=== PATIENT | female | born 1990 | race Caucasian/White ===

== ENCOUNTER 2016-11-15 19:05 | Inpatient (IN) | payer OTHER ==
[~2016-11-15] VITALS: Ht 162.6 cm; Wt 65.6 kg
[~2016-11-15 19:05] MED LIST: DIL2 PO; ETHI1TAB5 PO; INSU100C2 SQ; INSU100C8 SQ
[2016-11-15 19:34] VITALS: BP 132/85; PULSE 125; RESP 18; O2SAT 98
[2016-11-15] MEDS ORDERED: 0.9% Sodium Chloride 1,000 ML IV ONE ×2 (20:55→21:30)
--- NOTE | 2016-11-15 21:01 | ED.REPORT ---
HPI-Chest Pain Under 40 Date of Service Nov 15, 2016 ED Provider: Chalino Marshall MD Pt is a 25 y.o. female with a hx of DM I who presents to the ED c/o pleuritic chest pain onset yesterday. Pt reports associated sore throat, cough, fever ( subjective), nausea, vomiting, and constipation. She denies dysuria and productive cough. Pt had been driving from [place] to [place] yesterday when she noticed her sx. Upon arrival to the ED her BS was 350. She denies a hx of DVT and DKA. Nursing Notes Stated Complaint: PAINFUL BREATHING, FEVER, CAN'T TAKE DEEP BREATHS Chief Complaint: FLU/Cold Symptoms Nursing Notes Reviewed: Yes Allergies: Coded Allergies: Mosquito (Verified Allergy, Mild, Hives, 02/10/07) Scheduled Insulin Glargine (Lantus U100 Insulin Vial) 100 Unit/Ml Vial 12 UNIT SUBQ HS Insulin Human Lispro (HumaLOG U100 Insulin Vial) 100 Unit/Ml Unit 5-12 UNIT SUBQ TIDWM PER SLIDING SCALE AND CARB COUNTING Scheduled PRN Ibuprofen (Ibuprofen) 200 Mg Capsule 200-400 MG PO Q8H PRN PRN For Headache General Time Seen by MD: 20:58 Chief Complaint Chest pain Hx Obtained From: Patient Arrived By: Walk-in Sudden in Onset?: Yes Onset Occurred: Yesterday Symptom Duration: Since onset Quality: Painful, Pleuritic Past Medical History Past Medical History Reports: Diabetes mellitus Past Surgical History Reports: Smoking History Never Smoker Social History Alcohol Use: Denies alcohol use Drug Use: Denies drug use Occupation Works at [employer] Status Independent Review of Systems Constitutional: Reports: Fever Respiratory: Reports: Non-productive cough, Pleuritic pain, Denies: Prod cough, bloody, Prod cough, brown, Prod cough, clear, Prod cough , green, Prod cough, white, Prod cough, yellow Cardiovascular: Reports: Chest pain GI: Reports: Constipation, Nausea, Vomiting Complete sys rev & neg: except as marked. Ears / Nose / Throat: Reports: Sore throat Female: Denies: Dysuria Physical Exam Initial Vital Signs Vital Signs (First) Date Time Temp Pulse Resp B/P Pulse Ox O2 Delivery O2 Flow Rate FiO2 11/15/16 19:34 39.0 125 18 132/85 98 Room Air Initial VS: Reviewed Head / Eyes: Atraumatic, Normocephalic, PERRL Abdomen / GI: Soft, Non-tender, No guarding, No rebound, No distention Extremities: Vascular intact, Neuro intact Skin: Warm, Dry, No cyanosis Neurologic: Alert, Oriented, Nonfocal Psychiatric: Mood/affect normal, Behavior normal, Normal thought content Respiratory / Chest: Breath sounds NL, No wheezing, No chest tenderness Splinting with deep breathing Hyperventilating Cardiovascular: Heart sounds NL, Cap refill not delayed, Peripheral circulation NL Heart Rate / Rhythm: Positive: Tachycardia No lower extremity edema or chords ENT: Airway patent, Pharynx NL Mouth: Positive: Mucous membranes dry Lips cracked and dry Interpretation & Diagnostics Lab Results Interpretation Result Diagram: 11/15/16 2105 11/16/16 0430 Test 11/15/16 21:05 11/15/16 22:00 White Blood Count 8.2th/mm3 (3.8-10.1) Red Blood Count 4.95mil/mm3 (3.90-5.20) Hemoglobin 14.8g/dL (12.0-15.6) Hematocrit 43.3% (35.0-46.0) Mean Corpuscular Volume 87.5fL (81-100) Mean Corpuscular Hemoglobin 29.9pg (27.0-35.0) Mean Corpuscular Hemoglobin Concent 34.2% (32.0-37.0) Red Cell Distribution Width 12.6% (12.3-15.4) Platelet Count 274bil/L (150-400) Neutrophils (%) (Auto) 76.4% (40-74) Lymphocytes (%) (Auto) 18.2% (14-46) Monocytes (%) (Auto) 5.1% (4-12) Eosinophils (%) (Auto) 0% (0-5) Basophils (%) (Auto) 0.1% (0-3) D-Dimer < 0.50mg/L FEU (<0.50) Lactic Acid Level 1.1mmol/L (0.4-2.0) Total Bilirubin 0.5mg/dL (0.0-1.2) Aspartate Amino Transf (AST/SGOT) 15U/L (0-50) Alanine Aminotransferase (ALT/SGPT) 18U/L (0-32) Alkaline Phosphatase 81U/L (25-150) Troponin T 0.010ug/L (0.0-0.011) Pro-B-Type Natriuretic Peptide 6.25pg/mL (0-130) Total Protein 8.1g/dL (6.4-8.4) Albumin 4.1g/dL (3.4-5.0) Procalcitonin 0.11ng/mL (0.00-0.08) Ketones Positive (Negative) Urine Color Yellow (YELLOW) Urine Appearance Clear (CLEAR,HAZY) Urine pH 6.0 (5.0-8.0) Urine Specific [place] 1.043 (1.003-1.035) Urine Protein 30mg/dL (NEG,TRACE) Urine Glucose (UA) 500mg/dL (NEGATIVE) Urine Ketones >80mg/dL (NEGATIVE) Urine Occult Blood Small (NEGATIVE) Urine Nitrite Negative (NEGATIVE) Urine Bilirubin Negative (NEGATIVE) Urine Urobilinogen Normalmg/dL (NORMAL) Urine Leukocyte Esterase Negative (NEGATIVE) Urine RBC 0-2/hpf (0-2) Urine WBC 0-5/hpf (0-5) Urine Epithelial Cells Occasional/hpf (NONE-MOD) Urine Crystals None seen (NONE SEEN) Urine Bacteria None/hpf (NONE-FEW) Urine Hyaline Casts None/lpf (NONE) Urine Granular Casts None seen (NONE SEEN) Urine Waxy Casts None seen (NONE SEEN) Urine Red Blood Cell Casts None seen (NONE SEEN) Urine White Blood Cell Casts None seen (NONE SEEN) Urine Mucus None seen (None Seen) Urine Trichomonas None seen (NONE SEEN) Urine Yeast None (NONE SEEN) Urine Culture Reflexed Not indicated ECG Interpretation Time: 20:55 Interpreted by: ED physician Normal ECG Interpretation: Normal sinus rhythm, No acute ischemic changes Rhythm / Conduction: Tachycardia (119) X-Ray Chest Interpretation Chest Xray Interpretation: IMPRESSION: No acute cardiopulmonary findings. Dictated by: Yana Nye M.D. on 11/15/2016 at 21:28 Approved by: Yana Nye M.D. on 11/15/2016 at 21:28 Re-Eval/Medical Decision Med Decision/Clinical Course 25-year-old presents ostensibly with pleuritic chest pain, but it is tachycardic, dry, and routine labs reveal acidosis and diabetic ketoacidosis. Her pleuritic pain appears to be a simple viral pleuritis, with a negative chest x-ray. Her d-dimer is negative. EKG is normal. She is tachycardic but otherwise unremarkable. She is admitted now for IV fluids and insulin therapy for her DKA. She is febrile and flushed but no obvious source of infection found. Likely this is viral. Clean chest, clean urine, and no other focal source found. Transported in stable condition, improved after fluids and initiation of insulin therapy. Source of Hx: Old records Re-Evaluation/Progress : Time of Eval: 22:23 Re-Evaluation/Progress Note: Discussed lab results and plan for admit, pt understands and agrees with plan. Consultation : Referral / Consult Name: Fernando Dallas MD Consulted With: Hospitalist Call Returned at: 22:46 Trim Setter Helper: Agrees with eval, Agrees with plan, Accepts admit Note: Discussed pt condition. Accepts admit. Counseled Regarding: Diagnosis, Lab results, Need for admission Discharge & Departure Primary Impression: DKA, type 1 Diabetes mellitus complication detail: without coma Qualified Code: E10.10 - Type 1 diabetes mellitus with ketoacidosis without coma Disposition: ADMITTED TO HOSPITAL Discharge Condition All VS Reviewed: Yes Condition: Improved Referrals: Diamante Joens MD (PCP) Crit Care Except Billable Proc Time Spent: 30-74 minutes (thirty minutes) Scribe Attestation Portions of this note were transcribed by Ari Pina. Dr. Rolando Hollingsworth personally performed the history, physical exam and medical decision-making; I reviewed and confirmed the accuracy of the information in the transcribed note. Signed by: Enrique Sorenson, 11/15/16 and 1613 copies to: Diamante Jones MD, Christopher W MD Nov 15, 2016 21:01 ARI PINA Nov 15, 2016 21:04 Discharge & Departure Primary Impression: DKA, type 1 Diabetes mellitus complication detail: without coma Qualified Code: E10.10 - Type 1 diabetes mellitus with ketoacidosis without coma Disposition: ADMITTED TO HOSPITAL Discharge Condition All VS Reviewed: Yes Condition: Improved Referrals: Diamante Jones MD (PCP) Scribe Attestation Portions of this note were transcribed by Ari Pina. Dr. Rolando Hollingsworth personally performed the history, physical exam and medical decision-making; I reviewed and confirmed the accuracy of the information in the transcribed note. Signed by: Enrique Sorenson, 11/15/16 and 1080 copies to: Diamante Jones MD, Christopher W MD Nov 15, 2016 21:01 ARI PINA Nov 15, 2016 21:04
[2016-11-15 21:14] VITALS: BP 125/72; PULSE 123; RESP 22; O2SAT 99
[2016-11-15 21:14] LABS: BASOPHILS % (AUTO) 0.1 % (0-3); EOSINOPHILS % (AUTO) 0 % (0-5); MONOCYTES % (AUTO) 5.1 % (4-12); Mean Corpuscular Hemoglobin 29.9 pg (27.0-35.0); Mean Corpuscular Volume 87.5 fL (81-100); NEUTROPHILS % (AUTO) 76.4 % (40-74); Platelet Count 274 bil/L (150-400)
--- NOTE | 2016-11-15 21:30 | DRSVH ---
PROCEDURE: X-RAY CHEST ONE VIEW, PORTABLE ([id number]) INDICATIONS: SOB TECHNIQUE: One view of the chest was acquired. COMPARISON: None. FINDINGS: Surgical changes and devices: None. Lungs and pleura: No pleural effusions or pneumothorax. Lungs are clear. Mediastinum: Mediastinal contours appear normal. Heart size is normal. Bones and chest wall: No suspicious bony lesions. Overlying soft tissues appear unremarkable. IMPRESSION: No acute cardiopulmonary findings. Dictated by: Yana Nye M.D. on 11/15/2016 at 21:28 Approved by: Yana Nye M.D. on 11/15/2016 at 21:28
[2016-11-15 21:37] LABS: TROPONIN T 0.01 ug/L (0.0-0.011)
[2016-11-15] MEDS ORDERED: Insulin Human REGular 100 Units/100 mL NS IV SCH ×2 (22:05)
[2016-11-15] MEDS ORDERED: Insulin Human REGular 300 Unit/3 mL Inj IV SCH (22:05)
[2016-11-15] MEDS ORDERED: Insulin Human REGular Inj 100 UNIT in 0.9% Sodium Chloride 100 ML IV SCH (22:05)
[2016-11-15] MEDS ORDERED: Dextrose 10% 250 ML IV PRN (22:05)
[2016-11-15] MEDS ORDERED: D5W1/2NS 1,000 mL IV PRN (22:05)
[2016-11-15] MEDS ORDERED: Insulin Human REGular 300 Unit/3 mL Inj IV ONE (22:06)
[2016-11-15 22:20] VITALS: O2SAT 100
--- NOTE | 2016-11-15 22:32 | ABG ---
DateTimeAnalyzed 22:25:40 -_ pH ____7.261 - 7.350 7.450 pCO2 ___21.5__ -mmHg 35.0 45.0 pO2 116 -mmHg 70.0 100 HCO3- ____9.7__ -mmol/L 22.0 26.0 ABE __-15.8__ -mmol/L -2.0 2.0 tHb ___12.3__ -g/dL 12.0 18.0 O2Hb ___97.2__ -% 95.0 COHb ____1.0__ -% 1.5 MetHb ____0.6__ -% 0.4 1.5 sO2 ___98.8__ -% FIO2 ___21.0__ -% Drawn By MD - Date/Time Notified____ 22:31:00 -_ Notified By MD - Notified Whom DR ACEVEDO - K+ ____2.8__ -mmol/L tO2 ___17.0__ -Vol% OrderingPhysicianInitials CR - Carlos Manuel test _Positive -
[2016-11-15 22:33] LABS: APPEARANCE,URINE CLEAR (CLEAR,HAZY); COLOR,URINE YELLOW (YELLOW); OCCULT BLOOD,URINE SMALL (NEGATIVE); UROBILINOGEN,URINE NORMAL (NORMAL)
[2016-11-15] MEDS: 0.9% Sodium Chloride 1,000 ML IV SCH (22:49)
[2016-11-15] MEDS ORDERED: Alum-Mag Hydrox-Simeth 30 mL Suspension PO PRN (22:50)
[2016-11-15] MEDS ORDERED: Ondansetron 2 mg/mL 2 mL Inj IVPUSH PRN (22:50)
[2016-11-15] MEDS ORDERED: Polyethylene Glycol (PEG) 17 Gm Powder PO PRN (22:50)
[2016-11-15] MEDS ORDERED: Senna-Docusate 8.6-50 mg Tablet PO PRN (22:50)
--- NOTE | 2016-11-15 23:21 | PCM.HPMED ---
Subjective Date of Service Nov 15, 2016 Primary Provider: Admitting Physician: Primary Care Physician: Diamante Jones MD Attending Physician: Admit Status: From the Emergency Department, Full Admit, Critical Care Chief Complaint: Chest pain History of Present Illness: Alcira Solano is a 25 y.o. female with Type 1 Diabetes who presents to [facility] emergency department c/o pleuritic chest pain onset yesterday. Pt reports associated sore throat that started yesterday. Associated with dry cough, fever (subjective), nausea, vomiting, and constipation. She denies dysuria and productive cough or diarrhea. Patient denies any leg pain and no prior DVT before. She does not take any contraceptive pills. Denies any hemoptysis. Pt had been driving from [place] to [place]. They started driving since Tuesday but denies any sick contacts. She has type 1 diabetes but never had an episode of DKA before. She reports not missing any of her insulin dose Upon arrival to the ED her BS was 350. Case discussed with Dr Marshall, workup consistent with DKA with positive ketones. D dimer negative. Plan to admit for Insulin drip with DKA protocol Review of Systems: Pertinent positives as noted in HPI. All other systems were reviewed and are negative Allergies Coded Allergies: Mosquito (Verified Allergy, Mild, Hives, 02/10/07) Home Medications From [facility], not yet confirmed Alcira Bach [id number] 1990 09/22/2016 02:00 PM Page: 06/08 Delyla (28) 0.1 mg-20 mcg tablet take 1 tablet by oral route every day Humalog 100 unit/mL subcutaneous solution inject by subcutaneous route 5 to 15 units per sliding scale with each meal for diabetes. Lantus Solostar 100 unit/mL (3 mL) subcutaneous insulin pen inject 12 units by Subcutaneous route per insulin protocol Vitamin tablet take 1 tablet by oral route every day x 30 days. Stop Pyridium 200 mg tablet take 1 tablet by oral route 3 times every day after meals PMH Type 1 Diabetes Low back strain Right wrist tendonitis . Surgical History C section Pancreatic surgery when she was 8 Family History Patient adopted Social History Hx Alcohol Use: Yes (Occasional, social drinker) Hx Substance Use: No Hx Tobacco Use: No Smoking Status: Never Smoker Living Arrangement: with Family Exam Vital Signs Vital Sign - Last Date Time Temp Pulse Resp B/P Pulse Ox O2 Delivery O2 Flow Rate FiO2 11/15/16 22:20 37.0 100 Room Air 11/15/16 21:14 123 22 125/72 Exam General: Alert, Oriented X3, Cooperative, No acute Distress Eyes: PERRLA, Scleral Anicteric Mouth: Mouth Normal, Mucous Membranes dry Neck: Supple, no Thyromegaly, trachea central. Chest & Lungs: Clear to auscultation & percussion, No adventitious breath sounds, no crackles, no wheeze Cardiovascular: Normal S1, Normal S2, No Murmurs/Rubs/Gallops, Regular Rate/ Rhythm,(No JVD, no peripheral edema) Pulses: Radial (present and equal), Dorsalis Pedi (present and equal) Abdomen: Soft, Non-tender, Non-distended, Normoactive bowel tones. Musculoskeletal: Unremarkable. Normal range of motion, no swollen or erythematous joints Extremities: No edema, no cyanosis, no clubbing. Skin: No rashes. Warm and dry, no erythematous areas Neurological: Grossly neurologically intact, Normal Speech, Sensation Intact Lymphatic: Lymph nodes Cervical and Axillary not palpable. Lab and Diagnostics Labs Laboratory Tests Test 11/15/16 21:05 11/15/16 22:00 White Blood Count 8.2th/mm3 (3.8-10.1) Red Blood Count 4.95mil/mm3 (3.90-5.20) Hemoglobin 14.8g/dL (12.0-15.6) Hematocrit 43.3% (35.0-46.0) Mean Corpuscular Volume 87.5fL (81-100) Mean Corpuscular Hemoglobin 29.9pg (27.0-35.0) Mean Corpuscular Hemoglobin Concent 34.2% (32.0-37.0) Red Cell Distribution Width 12.6% (12.3-15.4) Platelet Count 274bil/L (150-400) Neutrophils (%) (Auto) 76.4% (40-74) Lymphocytes (%) (Auto) 18.2% (14-46) Monocytes (%) (Auto) 5.1% (4-12) Eosinophils (%) (Auto) 0% (0-5) Basophils (%) (Auto) 0.1% (0-3) D-Dimer < 0.50mg/L FEU (<0.50) Sodium Level 129mEq/L (134-144) Potassium Level 3.7mEq/L (3.5-5.2) Chloride Level 94mEq/L (97-108) Carbon Dioxide Level 11mmol/L (18-29) Blood Urea Nitrogen 11mg/dL (6-20) Creatinine 0.46mg/dL (0.57-1.00) Estimat Glomerular Filtration Rate 237mL/min (>59) Glucose Level 335mg/dL (60-99) Calcium Level 8.6mg/dL (8.5-10.1) Total Bilirubin 0.5mg/dL (0.0-1.2) Aspartate Amino Transf (AST/SGOT) 15U/L (0-50) Alanine Aminotransferase (ALT/SGPT) 18U/L (0-32) Alkaline Phosphatase 81U/L (25-150) Troponin T 0.010ug/L (0.0-0.011) Pro-B-Type Natriuretic Peptide 6.25pg/mL (0-130) Total Protein 8.1g/dL (6.4-8.4) Albumin 4.1g/dL (3.4-5.0) Hold Cline Top Tube Received (Received) Ketones Positive (Negative) Urine Color Yellow (YELLOW) Urine Appearance Clear (CLEAR,HAZY) Urine pH 6.0 (5.0-8.0) Urine Specific [place] 1.043 (1.003-1.035) Urine Protein 30mg/dL (NEG,TRACE) Urine Glucose (UA) 500mg/dL (NEGATIVE) Urine Ketones >80mg/dL (NEGATIVE) Urine Occult Blood Small (NEGATIVE) Urine Nitrite Negative (NEGATIVE) Urine Bilirubin Negative (NEGATIVE) Urine Urobilinogen Normalmg/dL (NORMAL) Urine Leukocyte Esterase Negative (NEGATIVE) Urine RBC 0-2/hpf (0-2) Urine WBC 0-5/hpf (0-5) Urine Epithelial Cells Occasional/hpf (NONE-MOD) Urine Crystals None seen (NONE SEEN) Urine Bacteria None/hpf (NONE-FEW) Urine Hyaline Casts None/lpf (NONE) Urine Granular Casts None seen (NONE SEEN) Urine Waxy Casts None seen (NONE SEEN) Urine Red Blood Cell Casts None seen (NONE SEEN) Urine White Blood Cell Casts None seen (NONE SEEN) Urine Mucus None seen (None Seen) Urine Trichomonas None seen (NONE SEEN) Urine Yeast None (NONE SEEN) Urine Culture Reflexed Not indicated Result Diagram: 11/15/16210411/15/162104 X-Rays, CTs and MRIs X-RAY CHEST ONE VIEW, PORTABLE 11/15 IMPRESSION: No acute cardiopulmonary findings. Dictated by: Yana Nye M.D. on 11/15/2016 at 21:28 Approved by: Yana Nye M.D. on 11/15/2016 at 21:28 Assessment & Plan Alcira Solano is a 25 y.o. female with Type 1 Diabetes who presents to [facility] emergency department c/o pleuritic chest pain but was found to be in DKA 1. Diabetic Ketoacidosis. Present on admission Likely triggered by a viral infection. - DKA insulin protocol, will stop when Anion gap is closed < 12 - Lantus prior to stopping insulin drip then start Lispro correction algorithm - nothing by mouth till off insulin drip - BMP q 4 hours to calculate anion gap - IV fluids resuscitations: NS @ 200 cc/hr, will switch to D51/2 NS when Blood glucose < 250 to avoid hypoglycemia - Inpatient Diabetes education 2. Acute Fever. Present on admission Suspect an infectious process likely a respiratory viral infection - procalcitonin check, initiate antibiotics if elevated - Thrombotic disease can also cause fever but d dimer is negative 3. Hyponatremia due to pseudohyponatremia due to hyperglycemia. Present on admission - should correct when treating hyperglycemia - Acetaminophen as needed for mild pain/fever/headache - Bowel regimen as needed -Antiemetic as needed Patient admitted under inpatient status with expected length of stay > 2 midnights for severity of present symptoms, complexities of treatment plan and risk for adverse event . Resuscitation Status: CPR: Attempt Resuscitation Fernando Dallas MD Nov 15, 2016 22:59
[2016-11-16] MEDS ORDERED: INSU100V7 SUBQ (00:08)
[2016-11-16] MEDS ORDERED: INSLIS SUBQ (00:09)
[2016-11-16] MEDS ORDERED: IBUP200C PO (00:10)
[2016-11-16 00:30] VITALS: BP 103/69; PULSE 98; RESP 18; O2SAT 99
[2016-11-16] MEDS ORDERED: Insulin Human REGular 300 Unit/3 mL Inj IV PRN (00:50)
[2016-11-16] MEDS ORDERED: Insulin Human REGular 100 Units/100 mL NS IV SCH ×2 (00:50)
[2016-11-16] MEDS ORDERED: 0.9% Sodium Chloride 1,000 ML IV SCH (00:55)
[2016-11-16] MEDS ORDERED: D5W1/2NS 1,000 mL IV PRN (00:55)
[2016-11-16] MEDS ORDERED: Calcium GLUCO 10% (Gm) Inj 2 GM in 0.9% Sodium Chloride 100 ML IV ONE (01:00)
[2016-11-16] MEDS: Heparin 5,000 Unit/mL Inj SUBQ SCH ×4 (01:13→23:37)
[2016-11-16] MEDS ORDERED: DEXTROSE IV ONE (03:00)
[2016-11-16] MEDS ORDERED: POTASSIUM CHLORIDE IV ONE (03:00)
[2016-11-16] MEDS ORDERED: levoFLOXacin Inj 750 MG in IV Premix 1 EACH IV SCH (04:15)
[2016-11-16 05:00] VITALS: BP 103/75; PULSE 92; RESP 19; O2SAT 100
[2016-11-16] MEDS: 0.9% Sodium Chloride 1,000 ML IV SCH (06:49)
[2016-11-16 07:36] VITALS: BP 106/69; PULSE 104; RESP 25; O2SAT 100
[2016-11-16] MEDS ORDERED: Glucose 40% Oral Gel 15 Gm Tube PO PRN (08:00)
[2016-11-16] MEDS ORDERED: Insulin Human NPH 100 Unit/mL 3 mL Inj SUBQ SCH (08:00)
[2016-11-16] MEDS: Insulin LISPRO 300 Unit/3 mL Inj SUBQ SCH ×5 (09:26→21:06)
[2016-11-16 12:00] VITALS: PULSE 104; RESP 20
[2016-11-16] MEDS ORDERED: Potassium Chloride 20 mEq SR Tablet PO ONE (13:05)
--- NOTE | 2016-11-16 14:52 | PCM.PNMED ---
Subjective Date of Service Nov 16, 2016 Subjective 25-year-old woman with type I diabetes presents in DKA with pleuritic respiratory infection, developing after cross, no automobile trip Reports feeling much better today. Appetite is present. No more nausea vomiting. Continues to have central upper sternal chest discomfort with deep breathing. No productive cough. Exam Vital Signs Vital Sign - Last Date Time Temp Pulse Resp B/P Pulse Ox O2 Delivery O2 Flow Rate FiO2 11/16/16 12:00 38.9 104 20 Room Air 11/16/16 07:36 106/69 100 Intake and Output 11/15/16 11/15/16 11/16/16 Cumulative From/Thru 15:00 23:00 07:00 11/15/16 19:34 - 11/16/16 06:07 Intake Total 1934 ml 1934 ml Output Total 1400 ml 1400 ml Balance 534 ml 534 ml Intake Oral 360 ml 360 ml IV Total 1574 ml 1574 ml Output Urine Total 1400 ml 1400 ml Exam General: Healthy-appearing, no acute distress HEENT: sclerae anicteric, oral mucosa moist Neck: no JVD Chest: clear to auscultation Cardiac: S1S2, no murmur Abdomen: BS normal, non-tender Extremities: No edema Neuro: A&O, cranial nerves symmetric, motor strength 5/5, coordination normal IVs and Medications Medications Reviewed: Medications were reviewed in detail Lab and Diagnostics Result Diagram: 11/15/16 2105 11/16/16 1230 X-Rays, CTs and MRIs X-RAY CHEST ONE VIEW, PORTABLE 11/15 IMPRESSION: No acute cardiopulmonary findings. Dictated by: Yana Nye M.D. on 11/15/2016 at 21:28 Approved by: Yana Nye M.D. on 11/15/2016 at 21:28 . Assessment & Plan Alcira Solano is a 25 y.o. female with Type 1 Diabetes who presents to [facility] emergency department c/o pleuritic chest pain but was found to be in DKA #. Diabetic Ketoacidosis. Present on admission. Likely triggered by a viral infection. Admitting pH 7.26. Serum bicarbonate 11. Anion gap 24. Gap closed within 24 hours of IV insulin. - Diabetic diet - Restart her home Lantus at bedtime, with NPH bridged today - Humalog 6 units nutritional plus medium correctional scale - Discontinue BMP q 4 hours; repeat BMP in a.m. - Discontinue IV fluids resuscitations: Encourage by mouth hydration- Inpatient Diabetes education #. SIRS, Acute Fever 39.3, heart rate 109, respiratory rate 20. Present on admission. White blood count is normal. Suspect a bronchiolar pulmonary infectious process likely a respiratory viral infection. No infiltrate. - Levaquin was started empirically - Check respiratory PCR panel - Change Levaquin to azithromycin, plan to complete five-day course. #. Pseudohyponatremia due to hyperglycemia. Present on admission - Resolved - Acetaminophen as needed for mild pain/fever/headache - Bowel regimen as needed -Antiemetic as needed Patient admitted under inpatient status with expected length of stay > 2 midnights for severity of present symptoms, complexities of treatment plan and risk for adverse event. Expect one more day with stable blood sugar and anion gap on subcutaneous insulin. . VTE Prophylaxis: Sub-Q Heparin (Unfractionated) Resuscitation Status: CPR: Attempt Resuscitation Time spent 40 minutes Tashi Feliz MD Nov 16, 2016 14:52
[2016-11-16 20:03] VITALS: BP 107/71; PULSE 99; RESP 20; O2SAT 100
[2016-11-16] MEDS ORDERED: Insulin GLARgine 100 Unit/mL Syringe SUBQ SCH ×2 (21:00)
[2016-11-16 23:34] VITALS: BP 127/83; PULSE 108; RESP 20; O2SAT 100
[2016-11-17 02:37] LABS: BASOPHILS % (AUTO) 0.1 % (0-3); EOSINOPHILS % (AUTO) 0.7 % (0-5); MONOCYTES % (AUTO) 9.6 % (4-12); Mean Corpuscular Hemoglobin 29.9 pg (27.0-35.0); Mean Corpuscular Volume 87.8 fL (81-100); Platelet Count 210 bil/L (150-400)
[2016-11-17 02:59] LABS: ERYTHROCYTE SEDIMENTATION RATE 34 mm/hr (0-32)
[2016-11-17 03:57] VITALS: BP 104/68; PULSE 94; RESP 20; O2SAT 98
[2016-11-17] MEDS ORDERED: Potassium Chloride Oral 20 mEq SR Tab(K 3 - 3.7 & Creat < 2) PO ONE (06:30)
[2016-11-17] MEDS ORDERED: Insulin Human NPH 100 Unit/mL 3 mL Inj SUBQ ONE (07:20)
[2016-11-17 07:25] VITALS: BP 109/75; PULSE 101; RESP 16; O2SAT 97
[2016-11-17] MEDS ORDERED: Potassium Chloride 20 mEq SR Tablet PO SCH ×2 (08:00→12:00)
[2016-11-17] MEDS: Heparin 5,000 Unit/mL Inj SUBQ SCH ×2 (08:30→16:30)
[2016-11-17] MEDS: Insulin LISPRO 300 Unit/3 mL Inj SUBQ SCH ×4 (08:36→20:51)
--- NOTE | 2016-11-17 10:20 | DRSVH ---
PROCEDURE: CT CHEST WITHOUT CONTRAST ([id number]) INDICATIONS: r/o effusion, pleural disease TECHNIQUE: Noncontrast 5 mm thick sections acquired from the pulmonary apices to the posterior costophrenic angl es. 7 mm thick coronal and sagittal MIP reformats were then acquired. For radiation dose reduction, the following was used: automated exposure control, adjustment of mA and/or kV according to patient size. COMPARISON: [facility], CR, XR CHEST 1VW (PORTABLE), 11/15/2016, 20:41. FINDINGS: Image quality: Excellent. Lungs and pleura: No acute air space opacities. No pleural effusions or pneumothorax. Central and peripheral airways are patent and normal in caliber. Mediastinum: Heart size is normal. No pericardial effusion. No mediastinal adenopathy by size crit eria. Thoracic aorta and central pulmonary arteries are normal in size. Esophagus is normal in jany lam. No hiatal hernia. Bones and chest wall: No suspicious bony lesions. No vertebral body compression fractures. No axil amanda or supraclavicular adenopathy by size criteria. Thyroid gland is within normal limits. Abdomen: Visualized upper abdominal solid organs and bowel loops appear normal in the absence of con trast. IMPRESSION: 1. No acute disease process. 2. No pleural effusion. 4. No acute lung opacities. Dictated by: Cely Dillard MD, PhD on 11/17/2016 at 9:50 Approved by: Cely Dillard MD, PhD on 11/17/2016 at 10:18
[2016-11-17 12:21] VITALS: BP 105/69; PULSE 88; RESP 17; O2SAT 98
[2016-11-17 13:21] VITALS: PULSE 95
--- NOTE | 2016-11-17 15:12 | PCM.PNMED ---
Subjective Date of Service Nov 17, 2016 Subjective 25-year-old woman with type I diabetes presents in [facility] with pleuritic respiratory infection, developing after [place] country automobile trip Feels similar to yesterday. Less symptomatic from fevers with scheduled Tylenol. Appetite is present. No nausea vomiting. Continues to have central upper sternal chest discomfort with deep breathing. No productive cough. Exam Vital Signs Vital Sign - Last Date Time Temp Pulse Resp B/P Pulse Ox O2 Delivery O2 Flow Rate FiO2 11/17/16 13:21 95 11/17/16 12:21 36.9 17 105/69 98 Room Air Intake and Output 11/16/16 11/16/16 11/17/16 Cumulative From/Thru 15:00 23:00 07:00 11/15/16 19:34 - 11/17/16 06:17 Intake Total 2407 ml 800 ml 5141 ml Output Total 750 ml 2150 ml Balance 1657 ml 800 ml 2991 ml Intake Oral 1800 ml 800 ml 2960 ml IV Total 607 ml 0 ml 2181 ml Output Urine Total 750 ml 2150 ml # Voids 1 3 4 Exam General: Healthy-appearing, no acute distress HEENT: sclerae anicteric, oral mucosa moist Neck: no JVD Chest: clear to auscultation, no Cardiac: S1S2, no murmur Abdomen: BS normal, non-tender Extremities: No edema Neuro: A&O, cranial nerves symmetric, motor strength 5/5, coordination normal IVs and Medications Medications Reviewed: Medications were reviewed in detail Lab and Diagnostics Result Diagram: 11/17/1622411/17/16 022 X-Rays, CTs and MRIs X-RAY CHEST ONE VIEW, PORTABLE 11/15 IMPRESSION: No acute cardiopulmonary findings. Dictated by: Yana Nye M.D. on 11/15/2016 at 21:28 Approved by: Yana Nye M.D. on 11/15/2016 at 21:28 PROCEDURE: CT CHEST WITHOUT CONTRAST ([id number]) IMPRESSION: 1. No acute disease process. 2. No pleural effusion. 4. No acute lung opacities. Dictated by: Cely Dillard MD, PhD on 11/17/2016 at 9:50 . Assessment & Plan Alcira Solano is a 25 y.o. female with Type 1 Diabetes who presents to [facility] emergency department c/o pleuritic chest pain but was found to be in DKA #. Diabetic Ketoacidosis. Present on admission. Likely triggered by a viral infection. Admitting pH 7.26. Serum bicarbonate 11. Anion gap 24. Gap closed within 24 hours of IV insulin. Persistent hyperglycemia and increased insulin requirement. - Diabetic diet - Increase Lantus at bedtime to 30 units (ambulatory doses 10 units), with NPH bridged today - Increase Humalog 6 units nutritional plus medium correctional scale - Discontinue BMP q 4 hours; repeat BMP in a.m. - Encourage by mouth hydration - Inpatient Diabetes education #. Pleuritic chest pain, acute, present on admission. D-dimer has been negative 2. Chest CT unremarkable. - Echocardiogram to rule out pericarditis - YOMI - IV ketorolac; if ineffective will continue with by mouth NSAID - Prefer not opioid analgesic #. Hypokalemia, acute. - Supplement by mouth #. SIRS, Acute Fever 39.3, heart rate 109, respiratory rate 20. Present on admission. White blood count is normal. Suspect a bronchiolar pulmonary infectious process likely a respiratory viral infection. No infiltrate. Levaquin was started empirically. Respiratory PCR panel negative. - Change Levaquin to azithromycin, plan to complete five-day course. Antibiotics day 1 was 11/16/16. #. Pseudohyponatremia due to hyperglycemia. Present on admission - Resolved - Acetaminophen as needed for mild pain/fever/headache - Bowel regimen as needed -Antiemetic as needed Patient admitted under inpatient status with expected length of stay > 2 midnights for severity of present symptoms, complexities of treatment plan and risk for adverse event. Expect one more day with stable blood sugar and anion gap on subcutaneous insulin. . VTE Prophylaxis: Sub-Q Heparin (Unfractionated) Resuscitation Status: CPR: Attempt Resuscitation Time spent 35 minutes Tashi Feliz MD Nov 17, 2016 15:12
--- NOTE | 2016-11-17 15:41 | DRSVH ---
[facility] [address] [place] [address] Echocardiogram Report Name: HORACIO POWERS Date: 11/17/2016 Height: 64 in Hospital Exam Location: [facility] Weight: 14 5 lb Gender: Female BSA: 1.7 m2 : 1990 Age: 25 yrs BP: 109/75 mmHg Reason For Study: Chest pain Ordering Physician: HOSPITALIST [facility] Performed By: Spring Langley Referring Physician: Ann Russell Interpretation Summary The left ventricle is normal in size. The ejection fraction is estimated to be 65-70%. The IVC is of normal diameter and collapses greater than 50% with a sniff. This suggests a low right atrial pressure of 3 mm Hg. There is no pericardial effusion. The pericardium appears normal. No significant valvular pathology seen. Procedure: A two-dimensional transthoracic echocardiogram with color flow and Doppler was performed in limited views only to assess for pericarditis. The study quality was technically good. There is no prior echocardiogram noted for this patient. The patient was in sinus tachycardia with heart rates between 95-103 bpm during the exam. Left Ventricle: The left ventricle is normal in size. There is normal left ventricular wall thickness. There is no thrombus. The ejection fraction is estimated to be 65-70%. There are no focal wall motion abnormalities. Diastolic function could not be accurately assessed due to tachycardia. Right Ventricle: The right ventricle is normal in size and function. Mitral Valve: The mitral valve is normal in structure and function. There is no mitral regurgitation noted. Aortic Valve: The aortic valve is trileaflet. The aortic valve opens well. There is no aortic valve stenosis. No aortic regurgitation is present. Tricuspid Valve: The tricuspid valve is normal in structure and function. Pulmonary artery pressures cannot be estimated because of the lack of a measurable TR jet velocity. There is trace tricuspid regurgitation. Pulmonic Valve: The pulmonic valve leaflets are thin and pliable; valve motion is normal. Great Vessels: The IVC is of normal diameter and collapses greater than 50% with a sniff. This suggests a low right atrial pressure of 3 mm Hg. Pericardium/ Pleura There is no pericardial effusion. The pericardium appears normal. MMode/2D Measurements & Calculations LVIDd: 4.2 cm IVC diam LV landry. diameter/BSA LV sys. diameter/BSA LVIDs: 2.7 cm : 1.4 cm (cm/m^2): 2.5 (cm/m^2): 1.6 FS: 35.5 % IVSd: 0.84 cm LVPWd: 0.74 cm RVD1 (basal) RVD2 (mid) : 2.4 cm Reading Physician:DANIELA
[2016-11-17] MEDS ORDERED: Insulin GLARgine 100 Unit/mL Syringe SUBQ SCH (21:00)
[2016-11-17 23:06] VITALS: BP 99/64; PULSE 90; RESP 17; O2SAT 97
[2016-11-18] MEDS: Heparin 5,000 Unit/mL Inj SUBQ SCH ×2 (00:17→08:30)
[2016-11-18 07:17] VITALS: BP 114/77; PULSE 100; RESP 14; O2SAT 99
[2016-11-18] MEDS: Insulin LISPRO 300 Unit/3 mL Inj SUBQ SCH (07:41)
[2016-11-18] MEDS ORDERED: Insulin LISPRO 300 Unit/3 mL Inj SUBQ SCH (08:00)
[2016-11-18] MEDS ORDERED: INSU100V7 SUBQ (08:50)
--- NOTE | 2016-11-18 08:56 | PCM.DIMED ---
Discharge Instructions Date of Service Nov 18, 2016 Dates of Hospitalization Nov 15, 2016 at 23:05 Discharge Diagnosis Discharge Diagnosis Diabetic ketoacidosis Atypical pneumonia with pleurisy Poorly controlled type I diabetes mellitus Medication Instructions Additional med instructions Diabetes recommendations: #1 We recommend to increase Lantus to 30 units in the evening. Monitor your fasting blood sugars and adjust your Lantus dose by 4 units until almost all fasting blood sugars are between 70-130. Overall you should take as much Lantus each day as your total daily dose of Humalog. #2 Continue your Humalog correctional dosing but increased to 2-3 units for each 50 MG/DL increase in blood glucose above 100. #3 Continue your Humalog nutritional dosing at approximately 3 units for each 15 g carbohydrate exchange unit. You may check blood sugars before and 2 hours after the meal. If 2 hour postprandial blood sugars are greater than 180 you may increase the nutritional dose by one unit for each carb exchange. For your pleuritic chest pain new may take ibuprofen as needed. Diet Discharge Diet: Diabetic Activity Discharge Activity: No restrictions Patient Instructions Follow-up Provider: Jose Elias Apple DO Follow-up with PCP in: 1 week Provider: Kvng Puga Follow-up in: 2 weeks (please refer as new patient to Kvng Puga in Endocrinology clinic) Tashi Feliz MD Nov 18, 2016 08:56
[2016-11-18 11:11] LABS: RNP Antibodies 0.4 AI (0.0-0.9)
[2016-11-18] MEDS ORDERED: INSLIS SUBQ (11:28)
--- NOTE | 2016-11-18 15:55 | PCM.DC.MED ---
Discharge Summary Date of Service Nov 18, 2016 Dates of Hospitalization Date of Hospital Admission Nov 15, 2016 at 23:05 Date of Discharge: Nov 18, 2016 Providers: Admitting Physician: Fernando Dallas MD Primary Care Physician: Diamante Jones MD Attending Physician: Fernando Dallas MD Diagnosis at Time of Discharge Diagnosis at Time of Discharge Diabetic ketoacidosis Atypical pneumonia with pleurisy Poorly controlled type I diabetes mellitus Procedures XRay, CTs & MRIs X-RAY CHEST ONE VIEW, PORTABLE 11/15 IMPRESSION: No acute cardiopulmonary findings. Dictated by: Yana Nye M.D. on 11/15/2016 at 21:28 Approved by: Yana Nye M.D. on 11/15/2016 at 21:28 PROCEDURE: CT CHEST WITHOUT CONTRAST ([id number]) IMPRESSION: 1. No acute disease process. 2. No pleural effusion. 4. No acute lung opacities. Dictated by: Cely Dillard MD, PhD on 11/17/2016 at 9:50 . Brief History History of Present Illness (per admission note): Alcira Solano is a 25 y.o. female with Type 1 Diabetes who presents to [facility] emergency department c/o pleuritic chest pain onset yesterday. Pt reports associated sore throat that started yesterday. Associated with dry cough , fever (subjective), nausea, vomiting, and constipation. She denies dysuria and productive cough or diarrhea. Patient denies any leg pain and no prior DVT before. She does not take any contraceptive pills. Denies any hemoptysis. Pt had been driving from [place] to [place]. They started driving since Tuesday but denies any sick contacts. She has type 1 diabetes but never had an episode of DKA before. She reports not missing any of her insulin dose. Upon arrival to the ED her BS was 350, with positive ketones. D dimer negative. Admitted for Insulin drip with DKA protocol. Hospital Course #. Diabetic Ketoacidosis. Present on admission. Likely triggered by a viral infection. Admitting pH 7.26. Serum bicarbonate 11. Anion gap 24. Gap closed within 24 hours of IV insulin. Persistent hyperglycemia and increased insulin requirement. Usual Lantus is 12 units at bedtime. Usual Humalog is approximately 10 units with each meal. She estimates carbohydrates. She understands exchange units. She uses 1 unit correctional per 50 MG/DL. She seems to estimate her Humalog needs. Her hemoglobin A1c was 12.1% - Diabetic diet; inpatient diabetes education - Increase Lantus at bedtime to 30 units (ambulatory doses 10 units); she was counseled to adjust Lantus dose to achieve a.m. blood glucose 70-130 - Humalog 2-3 units per carb exchange, correctional scale 2 units per 50 MG per DL - Recommend follow-up in endocrinology clinic #. Pleuritic chest pain, acute, present on admission. D-dimer has been negative 2. Chest CT unremarkable. Echocardiogram unremarkable. Symptomatic response to nonsteroidal analgesics. -Resolving #. Hypokalemia, acute. - Supplement by mouth #. SIRS, Acute Fever 39.3, heart rate 109, respiratory rate 20. Present on admission. White blood count is normal. No infiltrate. Levaquin was started empirically. Respiratory PCR panel negative. Cultures negative. - Discontinue antibiotics. #. Pseudohyponatremia due to hyperglycemia. Present on admission - Resolved . Exam Vital Signs (Last) Date Time Temp Pulse Resp B/P Pulse Ox O2 Delivery O2 Flow Rate FiO2 11/18/16 07:17 37.0 100 14 114/77 99 Room Air Exam General: Healthy-appearing, no acute distress HEENT: sclerae anicteric, oral mucosa moist Neck: no JVD Chest: clear to auscultation, no rub Cardiac: S1S2, no murmur Abdomen: BS normal, non-tender Extremities: No edema Neuro: A&O, cranial nerves symmetric, motor strength and coordination normal Test 11/15/16 21:05 11/15/16 22:00 11/16/16 04:30 11/17/16 02:25 Hemoglobin A1c 12.1% (4.8-5.6) Lactic Acid Level 1.1mmol/L (0.4-2.0) Total Bilirubin 0.5mg/dL (0.0-1.2) Aspartate Amino Transf (AST/SGOT) 15U/L (0-50) Alanine Aminotransferase (ALT/SGPT) 18U/L (0-32) Alkaline Phosphatase 81U/L (25-150) Troponin T 0.010ug/L (0.0-0.011) Pro-B-Type Natriuretic Peptide 6.25pg/mL (0-130) Total Protein 8.1g/dL (6.4-8.4) Albumin 4.1g/dL (3.4-5.0) Procalcitonin 0.11ng/mL (0.00-0.08) Ketones Positive (Negative) Urine Color Yellow (YELLOW) Urine Appearance Clear (CLEAR,HAZY) Urine pH 6.0 (5.0-8.0) Urine Specific [place] 1.043 (1.003-1.035) Urine Protein 30mg/dL (NEG,TRACE) Urine Glucose (UA) 500mg/dL (NEGATIVE) Urine Ketones >80mg/dL (NEGATIVE) Urine Occult Blood Small (NEGATIVE) Urine Nitrite Negative (NEGATIVE) Urine Bilirubin Negative (NEGATIVE) Urine Urobilinogen Normalmg/dL (NORMAL) Urine Leukocyte Esterase Negative (NEGATIVE) Urine RBC 0-2/hpf (0-2) Urine WBC 0-5/hpf (0-5) Urine Epithelial Cells Occasional/hpf (NONE-MOD) Urine Crystals None seen (NONE SEEN) Urine Bacteria None/hpf (NONE-FEW) Urine Hyaline Casts None/lpf (NONE) Urine Granular Casts None seen (NONE SEEN) Urine Waxy Casts None seen (NONE SEEN) Urine Red Blood Cell Casts None seen (NONE SEEN) Urine White Blood Cell Casts None seen (NONE SEEN) Urine Mucus None seen (None Seen) Urine Trichomonas None seen (NONE SEEN) Urine Yeast None (NONE SEEN) Urine Culture Reflexed Not indicated Hold Cline Top Tube Received (Received) White Blood Count 7.1th/mm3 (3.8-10.1) Red Blood Count 4.02mil/mm3 (3.90-5.20) Hemoglobin 12.0g/dL (12.0-15.6) Hematocrit 35.3% (35.0-46.0) Mean Corpuscular Volume 87.8fL (81-100) Mean Corpuscular Hemoglobin 29.9pg (27.0-35.0) Mean Corpuscular Hemoglobin Concent 34.0% (32.0-37.0) Red Cell Distribution Width 12.4% (12.3-15.4) Platelet Count 210bil/L (150-400) Neutrophils (%) (Auto) 61.0% (40-74) Lymphocytes (%) (Auto) 28.5% (14-46) Monocytes (%) (Auto) 9.6% (4-12) Eosinophils (%) (Auto) 0.7% (0-5) Basophils (%) (Auto) 0.1% (0-3) Erythrocyte Sedimentation Rate 34mm/hr (0-32) D-Dimer < 0.50mg/L FEU (<0.50) Test 11/18/16 03:35 Sodium Level 139mEq/L (134-144) Potassium Level 3.6mEq/L (3.5-5.2) Chloride Level 102mEq/L (97-108) Carbon Dioxide Level 26mmol/L (18-29) Blood Urea Nitrogen 12mg/dL (6-20) Creatinine < 0.30mg/dL (0.57-1.00) Estimat Glomerular Filtration Rate mL/min (>59) Glucose Level 179mg/dL (60-99) Calcium Level 8.4mg/dL (8.5-10.1) Discharge Medications Discharge Medications Insulin Glargine (Lantus U100 Insulin Vial) 100 Unit/Ml Vial 30 UNIT SUBQ HS Prescribed by: LETITIA WONG MD Insulin Human Lispro (HumaLOG U100 Insulin Vial) 100 Unit/Ml Unit 6-15 UNIT SUBQ TIDWM PER SLIDING SCALE AND CARB COUNTING Prescribed by: LETITIA WONG MD As needed Ibuprofen (Ibuprofen) 200 Mg Capsule 200-400 MG PO Q8H PRN PRN For Headache ( Reported) Additional med instructions Diabetes recommendations: #1 We recommend to increase Lantus to 30 units in the evening. Monitor your fasting blood sugars and adjust your Lantus dose by 4 units until almost all fasting blood sugars are between 70-130. Overall you should take as much Lantus each day as your total daily dose of Humalog. #2 Continue your Humalog correctional dosing but increased to 2-3 units for each 50 MG/DL increase in blood glucose above 100. #3 Continue your Humalog nutritional dosing at approximately 3 units for each 15 g carbohydrate exchange unit. You may check blood sugars before and 2 hours after the meal. If 2 hour postprandial blood sugars are greater than 180 you may increase the nutritional dose by one unit for each carb exchange. For your pleuritic chest pain new may take ibuprofen as needed. Followup Plan Discharge Diet: Diabetic Discharge Activity: No restrictions Follow-up Provider: Jose Elias Apple DO Follow-up with PCP in: 1 week Provider: Kvng Puga Follow-up in: 2 weeks (please refer as new patient to Kvng Puga in Endocrinology clinic) Time spent 35 minutes copies to: Jose Elias Apple Jeffrey W MD Nov 18, 2016 08:58
== END 2016-11-18 11:40 | disposition home or self-care (01) | DRG 637 ==
LOC: SED 19:05 → CCU 23:05 → PCC 11-16 08:59
PROVIDERS: ADMIT Hospitalist; ATTEND Hospitalist
PROC: 4A033R1 Measurement of Arterial Saturation, Peripheral, Percutaneous Approach (ICD-10-PCS; principal; 2016-11-15)
DX: E10.10 Type 1 diabetes mellitus with ketoacidosis without coma (principal); J18.9 Pneumonia, unspecified organism; Z79.4 Long term (current) use of insulin; R09.1 Pleurisy